=== PATIENT | female | born 1985 | race Caucasian/White ===

== ENCOUNTER 2019-03-07 16:52 | Inpatient (IN) ==
[2019-03-07 17:55] LABS: Basophils % 0.2 % (0.0-0.8); Eosinophils % 0.1 % (0.00-10.9); Hematocrit 33.8 VOL% (35.7-47.0); Hemoglobin 10.6 GM/DL (12.0-16.0); Immature Granulocytes % 0.2 %; Immature Granulocytes Absolute 0.02 #; Lymphocytes % 9.2 % (21.3-54.2); Mean Corpuscular HGB Conc 31.4 GM/DL (32-36); Mean Corpuscular Volume 73.5 FL (87-102); Mean Platelet Volume 9.3 FL (9.6-12.0); Monocytes % 1.3 % (1.7-12.7); Platelet Count 442 T/CUMM (130-400); Red Cell Distribution Width 16.9 % (9.3-17.3); White Blood Count 10.5 T/CUMM (4-12)
[2019-03-07] MEDS ORDERED: SODIUM CHLORIDE 0.9% 1,000 ML IV STA (18:12)
[2019-03-07] MEDS ORDERED: ONDANSETRON 4 MG/2 ML VIAL IV ONE (18:12)
[2019-03-07 18:15] LABS: Albumin 3.4 G/DL (3.4-5.0); Bilirubin,Total 0.6 MG/DL (0.2-1.0); Osmolality,Calculated 264.4 MOS/KG (273-304); Total Protein 8.5 G/DL (6.4-8.3)
[2019-03-07 18:51] LABS: Barbiturates Screen,Urine Negative (Negative); Benzodiazepines Screen,Urine Negative (Negative); Cannabinoid Screen,Urine Positive (Negative); Opiate Screen,Urine Negative (Negative); Phencyclidine Screen,Urine Negative (Negative)
[2019-03-07 18:56] LABS: Apearance,Urine Slightly Hazy (Clear); Bacteria,Urine Moderate /HPF (Few); Bilirubin,Urine Negative (Negative); Blood, Urine Negative (Negative); Glucose,Urine (UA) Negative (Negative); Ketones,Urine Negative (Negative); Mucus,Urine Occasional /LPF (Occasional); Nitrite,Urine Positive (Negative); Protein,Urine Negative; RBC,Urine 7 /HPF (0-4); Squamous Epithelial Cell,Urine Occasional /HPF (0-10); Urine Color Yellow (Yellow); Urine Specific Gravity 1.018 (1.001-1.035); Urine Urobilinogen < 2.0 EU/DL (0.2-1.0); WBC,Urine 74 /HPF (0-6)
[2019-03-07] MEDS ORDERED: LACTATED RINGERS 1,000 ML IV ONE ×2 (19:42→21:13)
[2019-03-07] MEDS ORDERED: MORPHINE 4 MG/1 ML VIAL IV STA (19:42)
[2019-03-07] MEDS ORDERED: CIPROFLOXACIN 500 MG TABLET PO STA (20:23)
[2019-03-07] MEDS ORDERED: ACETAMINOPHEN 500 MG TABLET PO STA (21:26)
[2019-03-07] MEDS ORDERED: ACETAMINOPHEN 500 MG TABLET ONE (21:26)
[2019-03-07] MEDS ORDERED: BISACODYL 5 MG TABLET PO PRN (23:03)
[2019-03-07] MEDS ORDERED: ONDANSETRON 4 MG/2 ML VIAL IV PRN (23:03)
[2019-03-07] MEDS ORDERED: MAGNESIUM SULF RIDER 4 GM in PREMIX 1 EACH IV PRN (23:39)
[2019-03-07] MEDS ORDERED: MAGNESIUM SULF RIDER 2 GM in PREMIX 1 EACH IV PRN (23:39)
[2019-03-08] MEDS: metroNIDAZOLE INJ 500 MG in PREMIX 1 EACH IV SCH ×3 (00:13→15:16)
[2019-03-08] MEDS: ENOXAPARIN 40 MG/0.4 ML SYRINGE SUBCUT SCH (00:14)
[2019-03-08] MEDS: SODIUM CHLORIDE 0.9% 1,000 ML IV SCH ×3 (00:19→17:20)
[2019-03-08] MEDS: POTASSIUM CHLORIDE 20 MEQ TABLET PO PRN ×3 (00:30→04:32)
[2019-03-08 04:19] LABS: Basophils % 0.2 % (0.0-0.8); Eosinophils % 0.1 % (0.00-10.9); Hematocrit 28.5 VOL% (35.7-47.0); Hemoglobin 8.9 GM/DL (12.0-16.0); Immature Granulocytes % 0.5 %; Immature Granulocytes Absolute 0.08 #; Lymphocytes # 2.6 10*3/uL (1.4-4.0); Lymphocytes % 15.2 % (21.3-54.2); Mean Corpuscular HGB Conc 31.2 GM/DL (32-36); Mean Corpuscular Volume 74.4 FL (87-102); Mean Platelet Volume 9.2 FL (9.6-12.0); Monocytes % 5.5 % (1.7-12.7); Neutrophils % 78.5 % (38.7-73.9); Platelet Count 380 T/CUMM (130-400); Red Blood Count 3.83 MC/CUMM (3.8-5.5); White Blood Count 17.1 T/CUMM (4-12)
[2019-03-08 04:51] LABS: Folate 12.7 NG/ML (5.4-24.0); Vitamin B12 473 PG/ML (211-911)
[2019-03-08 04:57] LABS: Calcium 7.8 MG/DL (8.5-10.1); Osmolality,Calculated 271.8 MOS/KG (273-304)
[2019-03-08 05:00] LABS: % Iron Saturation 2.5 % (18-50); Ferritin 44.3 ng/ml (8-252)
[2019-03-08 05:14] LABS: Band Neutrophils 4 % (0-10); Lymphocytes 15 % (20-55); Segmented Neutrophils 77 % (50-85); Total Cells Counted 100
[2019-03-08 05:15] LABS: Anisocytosis 1+; Ovalocytes Few; Platelet Estimate Normal; Polychromasia Slight
[2019-03-08 05:28] LABS: Sedimentation Rate-Westergren 96 MM/HR (0-20)
[2019-03-08] MEDS: CIPROFLOXACIN INJ 400 MG in PREMIX 1 EACH IV SCH ×2 (09:54→20:06)
[2019-03-08] MEDS ORDERED: IRON SUCROSE 300 MG in SODIUM CHLORIDE 0.9% 100 ML IV ONE (16:14)
[2019-03-08] MEDS: NICOTINE 21 MG/24 HR PATCH TRANSDERM SCH (16:34)
[2019-03-08] MEDS: ACETAMINOPHEN 325 MG TABLET PO PRN (16:35)
[2019-03-08] MEDS: MORPHINE 4 MG/1 ML VIAL IV PRN ×2 (16:36→23:44)
[2019-03-09] MEDS: ENOXAPARIN 40 MG/0.4 ML SYRINGE SUBCUT SCH (00:17)
[2019-03-09] MEDS: metroNIDAZOLE INJ 500 MG in PREMIX 1 EACH IV SCH ×3 (00:17→15:56)
[2019-03-09] MEDS: MORPHINE 4 MG/1 ML VIAL IV PRN ×3 (03:35→18:50)
[2019-03-09] MEDS: SODIUM CHLORIDE 0.9% 1,000 ML IV SCH ×2 (03:53→09:53)
[2019-03-09] MEDS ORDERED: AZITHROMYCIN PO ONE (07:17)
[2019-03-09] MEDS ORDERED: AZITHROMYCIN 250 MG TABLET PO ONE (08:30)
[2019-03-09] MEDS: NICOTINE 21 MG/24 HR PATCH TRANSDERM SCH (08:33)
[2019-03-09] MEDS: CIPROFLOXACIN INJ 400 MG in PREMIX 1 EACH IV SCH ×2 (09:54→20:28)
[2019-03-10] MEDS: ENOXAPARIN 40 MG/0.4 ML SYRINGE SUBCUT SCH
[2019-03-10] MEDS: MORPHINE 4 MG/1 ML VIAL IV PRN ×3 (00:01→14:28)
[2019-03-10] MEDS: SODIUM CHLORIDE 0.9% 1,000 ML IV SCH (03:15)
[2019-03-10] MEDS: ACETAMINOPHEN 325 MG TABLET PO PRN (03:17)
[2019-03-10 05:53] LABS: Basophils % 0.1 % (0.0-0.8); Eosinophils # 0.1 10*3/uL (0.0-0.87); Eosinophils % 0.4 % (0.00-10.9); Hematocrit 25.9 VOL% (35.7-47.0); Hemoglobin 8.1 GM/DL (12.0-16.0); Immature Granulocytes % 1.1 %; Immature Granulocytes Absolute 0.18 #; Lymphocytes # 2.2 10*3/uL (1.4-4.0); Lymphocytes % 13.6 % (21.3-54.2); Mean Corpuscular HGB Conc 31.3 GM/DL (32-36); Mean Corpuscular Volume 73.4 FL (87-102); Mean Platelet Volume 9.5 FL (9.6-12.0); Monocytes % 7.6 % (1.7-12.7); Neutrophils % 77.2 % (38.7-73.9); Platelet Count 428 T/CUMM (130-400); Red Blood Count 3.53 MC/CUMM (3.8-5.5); Red Cell Distribution Width 17.4 % (9.3-17.3); White Blood Count 15.9 T/CUMM (4-12)
[2019-03-10 06:06] LABS: Calcium 7.9 MG/DL (8.5-10.1); Osmolality,Calculated 273.7 MOS/KG (273-304)
[2019-03-10] MEDS: POTASSIUM CHLORIDE 20 MEQ TABLET PO PRN ×2 (06:24→14:31)
[2019-03-10 07:01] LABS: HIV Antigen/Antibody Result Nonreactive (Nonreactive)
[2019-03-10 07:52] LABS: % Iron Saturation 3.7 % (18-50); Ferritin 76.8 ng/ml (8-252)
[2019-03-10 08:35] LABS: Folate 8.7 NG/ML (5.4-24.0)
[2019-03-10] MEDS: metroNIDAZOLE INJ 500 MG in PREMIX 1 EACH IV SCH ×3 (09:36→16:36)
[2019-03-10 09:44] LABS: Hemoglobin A1 (Alkaline) 97.6 % (96.5-98.5); Hemoglobin A2 (Alkaline) 2.4 % (1.5-3.5)
[2019-03-10] MEDS: NICOTINE 21 MG/24 HR PATCH TRANSDERM SCH (10:24)
[2019-03-10] MEDS ORDERED: IRON SUCROSE 300 MG in SODIUM CHLORIDE 0.9% 100 ML IV ONE (10:30)
[2019-03-10] MEDS: CIPROFLOXACIN INJ 400 MG in PREMIX 1 EACH IV SCH (10:58)
[2019-03-10 11:25] VITALS: BP 111/74
== END 2019-03-10 15:53 | disposition home or self-care (01) | DRG 690 ==
LOC: N.ED 16:52 → N.EDINP 16:52 → N.2W 23:38 → N.2E 03-08 16:59
PROVIDERS: ADMIT Hospitalist; ATTEND Hospitalist